=== PATIENT | male | born 1970 | race Caucasian/White ===

== ENCOUNTER 2020-09-29 09:14 | Emergency (ER) | payer OTHER ==
[~2020-09-29] VITALS: Ht 162.5 cm; Wt 70.3 kg
[2020-09-29] MEDS ORDERED: MEDROL DOSEPAK4 MG PO (11:58)
[2020-09-29] MEDS ORDERED: NAPROSYN500 MG PO (11:58)
[2020-09-29] MEDS ORDERED: METHOCARBAMOL500 M1 PO (11:58)
== END 2020-09-29 12:05 | disposition home or self-care (01) ==
LOC: ED 09:14
DX: S16.1XXA Strain of muscle, fascia and tendon at neck level, initial encounter (principal); V89.2XXA Person injured in unspecified motor-vehicle accident, traffic, initial encounter; Y93.89 Activity, other specified; Y92.89 Other specified places as the place of occurrence of the external cause; Y99.8 Other external cause status